=== PATIENT | female | born 1995 | race Caucasian/White ===

== ENCOUNTER 2017-06-07 06:33 | Inpatient (IN) | payer MEDICAID ==
[2017-06-07] MEDS ORDERED: Lidocaine 1% 50 ML MDV ONE (06:47)
[2017-06-07] MEDS ORDERED: Lidocaine 1% 50 ML MDV INJECT ONE (07:15)
[2017-06-07] MEDS ORDERED: fentaNYL 100 MCG/2 ML SDV IVPUSH ONE (07:30)
--- NOTE | 2017-06-07 08:17 | PCM.LDHP ---
L&D History of Present Illness - General Date of Service: 06/07/17 (active labor) Admit Problem/Dx: Patient Status Order with Admit Dx/Problem 06/07/17 08:08 Patient Status [ADT] Routine Admission Diagnosis/Problem Admission Diagnosis/Problem Vaginal delivery Source of Information: Patient History Limitations: Reports: No Limitations - History of Present Illness Introduction:: This 22 year old G2 presented in active labor at 37 2/7 weeks gestation, wanting to push. Generally gets care in [place] and wanted a . In labor during the night and came here instead. 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 History: Reports: : 2 Para: 1 LMP (Approximate): (ULISSES 06/27/17) H&P Review of Systems - Review of Systems: Review Of Systems: See Below General: Reports: No Symptoms HEENT: Reports: No Symptoms Pulmonary: Reports: No Symptoms Cardiovascular: Reports: No Symptoms Gastrointestinal: Reports: No Symptoms Genitourinary: Reports: No Symptoms Musculoskeletal: Reports: No Symptoms Skin: Reports: No Symptoms Psychiatric: Reports: No Symptoms Neurological: Reports: No Symptoms Hematologic/Lymphatic: Reports: No Symptoms Immunologic: Reports: No Symptoms L&D Exam - Exam Exam: See Below - OB Specific Contraction Intensity: Strong Movement: Active Heart Tones: Present Heart Tones per Min: 125 Heart Rate (FHR) Variability: Moderate (6-25 bmp) Presentation: Vertex Estimated Weight: 6-7 pounds - Rodarte Score Rodarte Score Cervix Position: Anterior Rodarte Score Consistency: Soft Rodarte Score Effacement: >80% Rodarte Score Dilation: > 5 cm Rodarte Score Infant's Station: +1, +2 Rodarte Score Total: 13 - Exam General: Alert, Oriented HEENT: PERRLA, Conjunctiva Clear, EACs Clear, EOMI, Hearing Intact, Mucosa Moist & [place], Nares Patent, Normal Nasal Septum, Posterior Pharynx Clear, TMs Clear Neck: Supple, Trachea Midline Lungs: Clear to Auscultation, Normal Respiratory Effort Cardiovascular: Regular Rate, Regular Rhythm GI/Abdominal Exam: Normal Bowel Sounds, Soft, Non-Tender, No Organomegaly, No Distention, No Abnormal Bruit, No Mass, Pelvis Stable Rectal Exam: Normal Exam, Normal Rectal Tone Genitourinary: Normal external exam, Normal bimanual exam, Normal speculum exam Back Exam: Normal Inspection, Full Range of Motion Extremities: Normal Inspection, Normal Range of Motion, Non-Tender, No Pedal Edema, Normal Capillary Refill Skin: Warm, Dry, Intact Neurological: Cranial Nerves Intact, Reflexes Equal Bilateral Psychiatric: Alert, Normal Affect, Normal Mood - Problem List (1) Positive GBS test SNOMED Code(s): 5119716927109 ICD Code: B95.1 - STREPTOCOCCUS, GROUP B, CAUSING DISEASES CLASSD ELSWHR Status: Acute Current Visit: Yes (2) Precipitous delivery SNOMED Code(s): 023593795 ICD Code: O62.3 - PRECIPITATE LABOR Status: Acute Current Visit: Yes Problem List Initiated/Reviewed/Updated: Yes Orders Last 24hrs: Active Orders 24 hr Category Date Time Status Patient Status [ADT] Routine ADT 06/07/17 08:08 Ordered Antiembolic Devices [RC] .Routine Care 06/07/17 08:10 Ordered May Shower [RC] ASDIRECTED Care 06/07/17 08:08 Ordered Up ad Brooke [RC] ASDIRECTED Care 06/07/17 08:08 Ordered VTE/DVT Education [RC] Click to Edit Care 06/07/17 08:10 Ordered Vital Signs [RC] PFP Care 06/07/17 08:08 Ordered Regular Diet [DIET] Diet 06/07/17 Lunch Ordered ABO/RH TYPE [BBK] Routine Lab 06/07/17 08:08 Ordered ANTIBODY SCREEN,NON-CROSSMATCH [REF] Routine Lab 06/07/17 08:08 Ordered CBC WITH AUTO DIFF [HEME] AM Lab 06/08/17 05:11 Ordered CBC WITH AUTO DIFF [HEME] Routine Lab 06/07/17 08:08 Ordered HEPATITIS B SURFACE ANTIGEN [REF] Routine Lab 06/07/17 08:08 Ordered HEPATITIS C ANTIBODY [REF] Routine Lab 06/07/17 08:08 Ordered HIV RAPID SCREEN RLFX COMFIRM [CHEM] Routine Lab 06/07/17 08:08 Ordered RHIG WORKUP, [BBK] Urgent Lab 06/07/17 08:08 Ordered RPR-TREP PALLIDIUM AB,REFLEX [REF] Routine Lab 06/07/17 08:08 Ordered RUBELLA,ANTIBODY IGG [REF] Routine Lab 06/07/17 08:08 Ordered Assess Lochia [WOMSER] Per Unit Routine Oth 06/07/17 08:08 Ordered Assess Uterine Involution [WOMSER] Per Unit Routine Oth 06/07/17 08:08 Ordered DVT/VTE Prophylaxis Reflex [OM.PC] Routine Oth 06/07/17 08:08 Ordered Ice Therapy [OM.PC] Per Unit Routine Oth 06/07/17 08:10 Ordered Perineal Care [OM.PC] Per Unit Routine Oth 06/07/17 08:09 Ordered Sitz Bath [OM.PC] Per Unit Routine Oth 06/07/17 08:09 Ordered Resuscitation Status Routine Resus Stat 06/07/17 08:08 Ordered Assessment/Plan Comment:: vaginal delivery with surgery on standby
--- NOTE | 2017-06-07 08:25 | PCM.DEL ---
L & D Note - General Info Date of Service: 06/07/17 (delivery) Mother's Due Date: 06/27/17 - Delivery Note Labor: Spontaneous Delivery Outcome: Livebirth Infant Delivery Method: Spontaneous Vaginal Delivery-Single Infant Delivery Mode: Spontaneous Presentation: Vertex Nuchal Cord: Present Anesthesia Type: Local Anesthetic: Lidocaine (Xylocaine) 1% Plain Local Anesthetic Volume: 5cc Amniotic Fluid Description: Clear Episiotomy Type: None Laceration: 2nd Degree, Perineal Suture size: 3-0 Placenta: Intact, Spontaneous Cord: 3 Vessels Estimated Blood Loss: 0 Resuscitation Needed: No : Stimulated, Warmed, [place] Used Score 1 min: 8 Score 5 min: 8 Post Delivery Events: Other (see below) (inplanned ) Second Stage Interventions: Reports: Second Nurse Reviewed Heart Tones, Pushing Effectively, Pushing, McRobert's Position Delivery Comments (Free Text/Narrative):: This 22 year old G2 now P2 who is 37 2/7 weeks gestation presented in active labor complete.I was called from home and arrived in 7 minutes. She is a [place] present who was laboring at home and decided to come here instead of [place]. SROM in car on the way here, clear fluid. at 0703 in EDUARDO position with a loose nuchal cord which was reduced. The male was placed on mother's abdomen and he cried spontaneously. Apgars 8,8. Three vessel cord. He was dried and stimulated. The placenta was expressed spontaneously intact. She had a small second degree perineal tear, which was repaired with 3-0 vicryl. No other tears of the cervix , vagina, or rectum were found. EBL 100 Mother and baby to post and nursery in stable condition - General Info Date of Service: 06/07/17 Admission Dx/Problem (Free Text): Patient Status Order with Admit Dx/Problem 06/07/17 08:08 Patient Status [ADT] Routine Admission Diagnosis/Problem Admission Diagnosis/Problem Vaginal delivery Functional Status: Reports: Pain Controlled - Review of Systems General: Reports: No Symptoms HEENT: Reports: No Symptoms Pulmonary: Reports: No Symptoms Cardiovascular: Reports: No Symptoms Gastrointestinal: Reports: No Symptoms Genitourinary: Reports: No Symptoms Musculoskeletal: Reports: No Symptoms Skin: Reports: No Symptoms Neurological: Reports: No Symptoms Psychiatric: Reports: No Symptoms - Patient Data Med Orders - Current: Current Medications Discontinued Medications Fentanyl (Sublimaze) 100 mcg IVPUSH ONETIME ONE Stop: 06/07/17 07:31 - Exam General: Alert, Oriented HEENT: Pupils Equal, Pupils Reactive, EOMI, Mucous Membr. Moist/[place] Neck: Supple Lungs: Clear to Auscultation, Normal Respiratory Effort Cardiovascular: Regular Rate, Regular Rhythm GI/Abdominal Exam: Normal Bowel Sounds, Soft, Non-Tender, No Organomegaly, No Distention, No Abnormal Bruit, No Mass, Pelvis Stable (Female) Exam: Cervical Dilatation, Enlarged Uterus, Vaginal Bleeding, Vaginal Tears Back Exam: Normal Inspection, Full Range of Motion Extremities: Normal Inspection, Normal Range of Motion, Non-Tender, No Pedal Edema, Normal Capillary Refill Skin: Warm, Dry, Intact Wound/Incisions: Healing Well Neurological: No New Focal Deficit Psy/Mental Status: Alert, Normal Affect, Normal Mood - Problem List & Annotations (1) Positive GBS test SNOMED Code(s): 2565491523502 Code(s): B95.1 - STREPTOCOCCUS, GROUP B, CAUSING DISEASES CLASSD ELSWHR Status: Acute Current Visit: Yes (2) Precipitous delivery SNOMED Code(s): 850130631 Code(s): O62.3 - PRECIPITATE LABOR Status: Acute Current Visit: Yes (3) SNOMED Code(s): 42410685 Code(s): Z34.90 - ENCNTR FOR SUPRVSN OF NORMAL , UNSP, UNSP TRIMESTER Status: Acute Current Visit: Yes Qualifiers: Weeks of gestation: 37 weeks Qualified Code(s): Z3A.37 - 37 weeks gestation of - Problem List Review Problem List Initiated/Reviewed/Updated: Yes - My Orders Last 24 Hours: My Active Orders 06/07/17 08:08 Patient Status [ADT] Routine May Shower [RC] ASDIRECTED Up ad Brooke [RC] ASDIRECTED Vital Signs [RC] PFP ABO/RH TYPE [BBK] Routine ANTIBODY SCREEN,NON-CROSSMATCH [REF] Routine CBC WITH AUTO DIFF [HEME] Routine HEPATITIS B SURFACE ANTIGEN [REF] Routine HEPATITIS C ANTIBODY [REF] Routine HIV RAPID SCREEN RLFX COMFIRM [CHEM] Routine RHIG WORKUP, [BBK] Urgent RPR-TREP PALLIDIUM AB,REFLEX [REF] Routine RUBELLA,ANTIBODY IGG [REF] Routine Assess Lochia [WOMSER] Per Unit Routine Assess Uterine Involution [WOMSER] Per Unit Routine DVT/VTE Prophylaxis Reflex [OM.PC] Routine Resuscitation Status Routine 06/07/17 08:09 Perineal Care [OM.PC] Per Unit Routine Sitz Bath [OM.PC] Per Unit Routine 06/07/17 08:10 Antiembolic Devices [RC] .Routine VTE/DVT Education [RC] Click to Edit Ice Therapy [OM.PC] Per Unit Routine 06/07/17 Lunch Regular Diet [DIET] 06/08/17 05:11 CBC WITH AUTO DIFF [HEME] AM - Assessment Assessment:: 06/07/17 22 yr old g2 now p2 , precipitous, 37 2/7 weeks Small second tear, repaired - Plan Plan:: vaginal delivery with surgery on standby 06/07/17 GBS positive, not treated 48 hour stay routine post cares Labs: Rubella immune ABO O negative, had Rhogam at 29 weeks HIV neg RPR, NR Hep B non reactive
[2017-06-07] MEDS ORDERED: Acetaminophen 325 MG Tab, 50 Tab Bulk Bottle PO PRN (08:36)
[2017-06-07] MEDS ORDERED: Ibuprofen 200 MG Tab, 24 Tab Bulk Bottle PO PRN (08:36)
[2017-06-08] MEDS ORDERED: Lanolin 100% Cream 40 GM Tube TOP PRN (10:23)
--- NOTE | 2017-06-08 10:44 | PCM.PNPP ---
- General Info Date of Service: 06/08/17 (PPD 1) Admission Dx/Problem (Free Text): Patient Status Order with Admit Dx/Problem 06/07/17 08:08 Patient Status [ADT] Routine Admission Diagnosis/Problem Admission Diagnosis/Problem Vaginal delivery Functional Status: Reports: Pain Controlled - Review of Systems General: Reports: No Symptoms HEENT: Reports: No Symptoms Pulmonary: Reports: No Symptoms Cardiovascular: Reports: No Symptoms Gastrointestinal: Reports: No Symptoms Genitourinary: Reports: No Symptoms Musculoskeletal: Reports: No Symptoms Skin: Reports: No Symptoms Neurological: Reports: No Symptoms Psychiatric: Reports: No Symptoms - General Info Date of Service: 06/08/17 - Patient Data Vital Signs - Most Recent: Last Vital Signs Temp 98.4 F 06/08/17 07:17 Pulse 70 06/08/17 07:17 Resp 18 06/08/17 07:17 BP 102/59 L 06/08/17 07:17 Pulse Ox 98 06/08/17 07:17 Weight - Most Recent: 160 lb 0.008 oz Lab Results - Last 24 Hours: Laboratory Results - last 24 hr 06/07/17 06/07/17 06/07/17 Range/Units 08:20 13:04 13:04 WBC (4.5-11.0) K/uL RBC (3.30-5.50) M/uL Hgb (12.0-15.0) g/dL Hct (36.0-48.0) % MCV (80-98) fL MCH (27-31) pg MCHC (32-36) % Plt Count (150-400) K/uL Neut % (Auto) (36-66) % Lymph % (Auto) (24-44) % Adams % (Auto) (2-6) % Eos % (Auto) (2-4) % Baso % (Auto) (0-1) % Urine Color Red Urine Appearance Cloudy Urine pH 6.0 (4.5-8.0) Ur Specific [place] 1.015 (1.008-1.030) Urine Protein 30 H (NEGATIVE) mg/dL Urine Glucose (UA) Normal (NEGATIVE) mg/dL Urine Ketones Negative (NEGATIVE) mg/dL Urine Occult Blood Large (NEGATIVE) Urine Nitrite Negative (NEGATIVE) Urine Bilirubin Negative (NEGATIVE) Urine Urobilinogen Normal (NORMAL) mg/dL Ur Leukocyte Esterase Moderate (NEGATIVE) Urine RBC >100 H (0-5) Urine WBC 0-5 (0-5) Ur Epithelial Cells Few Amorphous Sediment Not seen Urine Bacteria Not seen Urine Mucus Not seen Urine Opiates Screen Negative (NEGATIVE) Ur Oxycodone Screen Negative (NEGATIVE) Urine Methadone Screen Negative (NEGATIVE) Ur Propoxyphene Screen Negative (NEGATIVE) Ur Barbiturates Screen Negative (NEGATIVE) Ur Tricyclics Screen Negative (NEGATIVE) Ur Phencyclidine Scrn Negative (NEGATIVE) Ur Amphetamine Screen Negative (NEGATIVE) U Methamphetamines Scrn Negative (NEGATIVE) Urine MDMA Screen Negative (NEGATIVE) U Benzodiazepines Scrn Negative (NEGATIVE) U Cocaine Metab Screen Negative (NEGATIVE) U Marijuana (THC) Screen Negative (NEGATIVE) Antibody Identification Undetermined Specific Rhogam Indicated No, mom+baby rh neg 06/08/17 Range/Units 05:00 WBC 10.5 (4.5-11.0) K/uL RBC 3.98 (3.30-5.50) M/uL Hgb 9.0 L (12.0-15.0) g/dL Hct 29.4 L (36.0-48.0) % MCV 74 L (80-98) fL MCH 23 L (27-31) pg MCHC 31 L (32-36) % Plt Count 202 (150-400) K/uL Neut % (Auto) 58 (36-66) % Lymph % (Auto) 32 (24-44) % Adams % (Auto) 9 H (2-6) % Eos % (Auto) 2 (2-4) % Baso % (Auto) 0 (0-1) % Urine Color Urine Appearance Urine pH (4.5-8.0) Ur Specific [place] (1.008-1.030) Urine Protein (NEGATIVE) mg/dL Urine Glucose (UA) (NEGATIVE) mg/dL Urine Ketones (NEGATIVE) mg/dL Urine Occult Blood (NEGATIVE) Urine Nitrite (NEGATIVE) Urine Bilirubin (NEGATIVE) Urine Urobilinogen (NORMAL) mg/dL Ur Leukocyte Esterase (NEGATIVE) Urine RBC (0-5) Urine WBC (0-5) Ur Epithelial Cells Amorphous Sediment Urine Bacteria Urine Mucus Urine Opiates Screen (NEGATIVE) Ur Oxycodone Screen (NEGATIVE) Urine Methadone Screen (NEGATIVE) Ur Propoxyphene Screen (NEGATIVE) Ur Barbiturates Screen (NEGATIVE) Ur Tricyclics Screen (NEGATIVE) Ur Phencyclidine Scrn (NEGATIVE) Ur Amphetamine Screen (NEGATIVE) U Methamphetamines Scrn (NEGATIVE) Urine MDMA Screen (NEGATIVE) U Benzodiazepines Scrn (NEGATIVE) U Cocaine Metab Screen (NEGATIVE) U Marijuana (THC) Screen (NEGATIVE) Antibody Identification Rhogam Indicated Med Orders - Current: Current Medications Acetaminophen (Tylenol Bulk Bottle) 650 mg PO Q4H PRN PRN Reason: Pain Emollient Ointment (Lansinoh Hpa) 40 gm TOP ASDIRECTED PRN PRN Reason: Pain Last Admin: 06/08/17 10:31 Dose: 1 applic Ibuprofen (Motrin Bulk Bottle) 200 mg PO Q6H PRN PRN Reason: Pain Discontinued Medications Fentanyl (Sublimaze) 100 mcg IVPUSH ONETIME ONE Stop: 06/07/17 07:31 Last Admin: 06/07/17 07:05 Dose: 100 mcg Oxytocin/Sodium Chloride (Pitocin In Ns 20 Units/1,000 Ml) Confirm Administered Dose 20 unit in 1,000 mls @ as directed .ROUTE .STK-MED ONE Stop: 06/07/17 06:37 Last Admin: 06/07/17 07:05 Dose: 20 unit Oxytocin/Sodium Chloride (Pitocin In Ns 20 Units/1,000 Ml) 20 unit in 1,000 mls @ 250 mls/hr IV BOLUS ANGEL PRN Reason: Protocol Stop: 06/07/17 11:04 Last Admin: 06/07/17 15:39 Dose: Not Given Lidocaine HCl (Xylocaine 1%) Confirm Administered Dose 100 ml .ROUTE .STK-MED ONE Stop: 06/07/17 06:48 Last Admin: 06/07/17 07:00 Dose: 100 ml Lidocaine HCl (Xylocaine 1%) 0 ml INJECT ONETIME ONE Stop: 06/07/17 07:16 Last Admin: 06/07/17 15:39 Dose: Not Given - Interaction Infant Disposition, : [place] in Room with Family Interaction: Holding Infant Infant Feeding: Breastfed Infant; Nursed Well Support Person: - Recovery Exam Fundal Tone: Firm Fundal Level: At Umbilicus Fundal Placement: Midline Lochia Amount: Small Lochia Color: Rubra/Red Perineum Description: Intact, Minimal Bruising/Swelling Episiotomy/Laceration: Approximated Urinary Elimination: Voided - Exam General: Alert, Oriented HEENT: Pupils Equal Neck: Supple Lungs: Clear to Auscultation, Normal Respiratory Effort Cardiovascular: Regular Rate, Regular Rhythm GI/Abdominal Exam: Normal Bowel Sounds, Soft, Non-Tender, No Organomegaly, No Distention, No Abnormal Bruit, No Mass, Pelvis Stable Extremities: Normal Inspection, Normal Range of Motion, Non-Tender, No Pedal Edema, Normal Capillary Refill Skin: Warm, Dry, Intact Wound/Incisions: Healing Well Psy/Mental Status: Alert, Normal Affect, Normal Mood - Problem List & Annotations (1) Positive GBS test SNOMED Code(s): 6279582346404 Code(s): B95.1 - STREPTOCOCCUS, GROUP B, CAUSING DISEASES CLASSD ELSR Status: Acute Current Visit: Yes (2) Precipitous delivery SNOMED Code(s): 951117146 Code(s): O62.3 - PRECIPITATE LABOR Status: Acute Current Visit: Yes (3) SNOMED Code(s): 02793624 Code(s): Z34.90 - ENCNTR FOR SUPRVSN OF NORMAL , UNSP, UNSP TRIMESTER Status: Acute Current Visit: Yes Qualifiers: Weeks of gestation: 37 weeks Qualified Code(s): Z3A.37 - 37 weeks gestation of - Problem List Review Problem List Initiated/Reviewed/Updated: Yes - My Orders Last 24 Hours: My Active Orders 06/07/17 Lunch Regular Diet [DIET] 06/08/17 10:23 Lanolin [Lansinoh HPA] 40 gm TOP ASDIRECTED PRN - Assessment Assessment:: 06/07/17 22 yr old g2 now p2 , precipitous, 37 2/7 weeks Small second tear, repaired 06/08/17 No problems today HGB 9 has a history of Anemia encouraged iron supplement without problem No fever today - Plan Plan:: vaginal delivery with surgery on standby 06/07/17 GBS positive, not treated 48 hour stay routine post cares Labs: Rubella immune ABO O negative, had Rhogam at 29 weeks HIV neg RPR, NR Hep B non reactive 06/08/16 Home tomorrow support and continue routine cares.
--- NOTE | 2017-06-09 07:48 | PCM.PNPP ---
- General Info Date of Service: 06/09/17 (PPD 2 D/C) Admission Dx/Problem (Free Text): Patient Status Order with Admit Dx/Problem 06/07/17 08:08 Patient Status [ADT] Routine Admission Diagnosis/Problem Admission Diagnosis/Problem Vaginal delivery Functional Status: Reports: Pain Controlled - Review of Systems General: Reports: No Symptoms HEENT: Reports: No Symptoms Pulmonary: Reports: No Symptoms Cardiovascular: Reports: No Symptoms Gastrointestinal: Reports: No Symptoms Genitourinary: Reports: No Symptoms Musculoskeletal: Reports: No Symptoms Skin: Reports: No Symptoms Neurological: Reports: No Symptoms Psychiatric: Reports: No Symptoms - General Info Date of Service: 06/09/17 - Patient Data Vital Signs - Most Recent: Last Vital Signs Temp 99.8 F 06/09/17 07:03 Pulse 90 06/09/17 07:03 Resp 16 06/09/17 07:03 BP 109/75 06/09/17 07:03 Pulse Ox 95 06/09/17 07:03 Weight - Most Recent: 160 lb 0.008 oz I&O - Last 24 Hours: Intake & Output 06/08/17 06/09/17 06/09/17 22:59 06:59 14:59 Intake Total 600 Balance 600 Med Orders - Current: Current Medications Acetaminophen (Tylenol Bulk Bottle) 650 mg PO Q4H PRN PRN Reason: Pain Emollient Ointment (Lansinoh Hpa) 40 gm TOP ASDIRECTED PRN PRN Reason: Pain Last Admin: 06/08/17 10:31 Dose: 1 applic Ibuprofen (Motrin Bulk Bottle) 200 mg PO Q6H PRN PRN Reason: Pain Discontinued Medications Fentanyl (Sublimaze) 100 mcg IVPUSH ONETIME ONE Stop: 06/07/17 07:31 Last Admin: 06/07/17 07:05 Dose: 100 mcg Oxytocin/Sodium Chloride (Pitocin In Ns 20 Units/1,000 Ml) Confirm Administered Dose 20 unit in 1,000 mls @ as directed .ROUTE .STK-MED ONE Stop: 06/07/17 06:37 Last Admin: 06/07/17 07:05 Dose: 20 unit Oxytocin/Sodium Chloride (Pitocin In Ns 20 Units/1,000 Ml) 20 unit in 1,000 mls @ 250 mls/hr IV BOLUS ANGEL PRN Reason: Protocol Stop: 06/07/17 11:04 Last Admin: 06/07/17 15:39 Dose: Not Given Lidocaine HCl (Xylocaine 1%) Confirm Administered Dose 100 ml .ROUTE .STK-MED ONE Stop: 06/07/17 06:48 Last Admin: 06/07/17 07:00 Dose: 100 ml Lidocaine HCl (Xylocaine 1%) 0 ml INJECT ONETIME ONE Stop: 06/07/17 07:16 Last Admin: 06/07/17 15:39 Dose: Not Given - Infant Interaction Infant Disposition, : [place] in Room with Family Interaction: Holding Infant Feeding: Breastfed Infant; Nursed Well Support Person: - Recovery Exam Fundal Tone: Firm Fundal Level: At Umbilicus Fundal Placement: Midline Lochia Amount: Moderate Lochia Color: Rubra/Red Perineum Description: Intact, Minimal Bruising/Swelling Episiotomy/Laceration: Approximated Bladder Status: Voiding Urinary Elimination: Voided - Exam General: Alert, Oriented HEENT: Pupils Equal Neck: Supple Lungs: Clear to Auscultation, Normal Respiratory Effort Cardiovascular: Regular Rate, Regular Rhythm GI/Abdominal Exam: Normal Bowel Sounds, Soft, Non-Tender, No Organomegaly, No Distention, No Abnormal Bruit, No Mass, Pelvis Stable Extremities: Normal Inspection, Normal Range of Motion, Non-Tender, No Pedal Edema, Normal Capillary Refill Skin: Warm, Dry, Intact Wound/Incisions: Healing Well Neurological: No New Focal Deficit Psy/Mental Status: Alert, Normal Affect, Normal Mood - Problem List & Annotations (1) Positive GBS test SNOMED Code(s): 3545147860500 Code(s): B95.1 - STREPTOCOCCUS, GROUP B, CAUSING DISEASES CLASSD ELSWHR Status: Acute Current Visit: Yes (2) Precipitous delivery SNOMED Code(s): 040973315 Code(s): O62.3 - PRECIPITATE LABOR Status: Acute Current Visit: Yes (3) SNOMED Code(s): 83423784 Code(s): Z34.90 - ENCNTR FOR SUPRVSN OF NORMAL , UNSP, UNSP TRIMESTER Status: Acute Current Visit: Yes Qualifiers: Weeks of gestation: 37 weeks Qualified Code(s): Z3A.37 - 37 weeks gestation of - Problem List Review Problem List Initiated/Reviewed/Updated: Yes - My Orders Last 24 Hours: My Active Orders 06/08/17 10:23 Lanolin [Lansinoh [facility]] 40 gm TOP ASDIRECTED PRN - Assessment Assessment:: 06/07/17 22 yr old g2 now p2 , precipitous, 37 2/7 weeks Small second tear, repaired 06/08/17 No problems today HGB 9 has a history of Anemia encouraged iron supplement without problem No fever today 06/09/17 Doing well Wants to go home No fever or problems without concerns - Plan Plan:: vaginal delivery with surgery on standby 06/07/17 GBS positive, not treated 48 hour stay routine post cares Labs: Rubella immune ABO O negative, had Rhogam at 29 weeks HIV neg RPR, NR Hep B non reactive 06/08/16 Home tomorrow support and continue routine cares. 06/09/17 Home today See me in 6 weeks for a post visit
== END 2017-06-09 10:25 | disposition home or self-care (01) | DRG 775 ==
LOC: JP.OBCHECK 06:33 → JP.OB 06:41 → OBSVTOIN 07:03 → JP.OB 07:03 → JP.MS 12:18
PROVIDERS: ADMIT Nurse Practitioner Family; ATTEND Nurse Practitioner Family
PROC: 10E0XZZ Delivery of Products of Conception, External Approach (ICD-10-PCS; principal; 2017-06-07)
PROC: 0KQM0ZZ Repair Perineum Muscle, Open Approach (ICD-10-PCS; 2017-06-07)
DX: O62.3 Precipitate labor (principal); O34.219 Maternal care for unspecified type scar from previous cesarean delivery; O99.824 Streptococcus B carrier state complicating childbirth; O69.81X0 Labor and delivery complicated by cord around neck, without compression, not applicable or unspecified; O70.1 Second degree perineal laceration during delivery; Z3A.37 37 weeks gestation of pregnancy; Z37.0 Single live birth
CPT/HCPCS: 36415; 59300; 59409; 80305; 81001; 85025; 85460; 86850; 86900; 86901; 99211; A9270-GY; J2590; J3010

== ENCOUNTER 2019-11-12 18:18 | Emergency (ER) | payer MEDICAID ==
[2019-11-12] MEDS ORDERED: Sodium Chloride 0.9% 1,000 ML IV SCH (19:30)
--- NOTE | 2019-11-12 19:56 | EDM.PDOC ---
ED HPI GENERAL MEDICAL PROBLEM - General Chief Complaint: Abdominal Pain Stated Complaint: ABD PAIN Time Seen by Provider: 11/12/19 18:23 Source of Information: Reports: Patient, RN History Limitations: Reports: No Limitations - History of Present Illness INITIAL COMMENTS - FREE TEXT/NARRATIVE: chief complaint: evaluation concerns of miscarriage. This is a 24 year old , with ULISSES 05/06/2020, reports about two weeks ago experienced 2 days of heavy menstrual like bleeding then 2 days of light bleeding, now has abdominal bloating, feels like she has to pass gas but can't. She did call her OB Doctor in [place]. She did have a ultrasound at 10 weeks 1 days and all was okay. then after ultrasound had the bleeding. breast feeding her 1 year old child. Gestational age 14 weeks per previous ultrasound denies fever, chills, nausea, vomiting, diarrhea or constipation Onset: Today Location: Reports: Abdomen Quality: Reports: Pressure Severity: Mild Improves with: Reports: None Worsens with: Reports: None Context: Reports: Other ( with bleeding) Associated Symptoms: Reports: No Other Symptoms - Related Data Allergies Allergy/AdvReac Type Severity Reaction Status Date / Time No Known Allergies Allergy Verified 11/12/19 19:22 Home Meds: Home Meds NK [No Known Home Meds] 11/12/19 [History] Past Medical History - Past Health History Medical/Surgical History: Denies Medical/Surgical History 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 [place] farm) ED ROS GENERAL - Review of Systems Review Of Systems: See Below Constitutional: Reports: No Symptoms, Other (abdominal bloating. ) HEENT: Reports: No Symptoms Respiratory: Reports: No Symptoms Cardiovascular: Reports: No Symptoms Endocrine: Reports: No Symptoms GI/Abdominal: Reports: Distension (feels bloated, last BM this am- normal) : Reports: No Symptoms Musculoskeletal: Reports: No Symptoms Skin: Reports: No Symptoms Neurological: Reports: No Symptoms Psychiatric: Reports: No Symptoms Hematologic/Lymphatic: Reports: No Symptoms Immunologic: Reports: No Symptoms ED EXAM, GI/ABD - Physical Exam Exam: See Below Exam Limited By: No Limitations General Appearance: Alert, WD/WN, No Apparent Distress Eyes: Bilateral: Normal Appearance, EOMI Ears: Normal External Exam Nose: Normal Inspection, Normal Mucosa, No Blood Throat/Mouth: Normal Inspection, Normal Lips, Normal Teeth, Normal Gums, Normal Oropharynx, Normal Voice, No Airway Compromise Head: Atraumatic, Normocephalic Neck: Normal Inspection, Supple, Non-Tender, Full Range of Motion Respiratory/Chest: No Respiratory Distress, Lungs Clear, Normal Breath Sounds, No Accessory Muscle Use Cardiovascular: Normal Peripheral Pulses, Regular Rate, Rhythm, No Edema, No Gallop, No JVD, No Murmur, No Rub GI/Abdominal Exam: Normal Bowel Sounds, Soft, Non-Tender, No Distention, No Abnormal Bruit (Female) Exam: Deferred (declines exam) Rectal (Female) Exam: Deferred Back Exam: Normal Inspection, Full Range of Motion, NT Neurological: Alert, Oriented, CN II-XII Intact, Normal Cognition, Normal Gait, Normal Reflexes, No Motor/Sensory Deficits Psychiatric: Normal Affect, Normal Mood Skin Exam: Warm, Dry, Intact, Normal Color, No Rash Lymphatic: No Adenopathy Course - Vital Signs Last Recorded V/S: Last Vital Signs Temp 36.2 C 11/12/19 19:17 Pulse 91 11/12/19 19:17 Resp 16 11/12/19 19:17 BP 113/79 11/12/19 19:17 Pulse Ox 98 11/12/19 19:17 - Orders/Labs/Meds Orders: Active Orders 24 hr Category Date Time Status OB 1st Tri Sgl 1st Gest [US] Urgent Exams 11/12/19 19:30 Taken CULTURE URINE [] Stat Lab 11/12/19 21:30 Ordered Labs: Laboratory Tests 11/12/19 11/12/19 11/12/19 Range/Units 19:37 19:41 19:41 WBC 8.3 (4.5-11.0) K/uL RBC 4.20 (3.30-5.50) M/uL Hgb 11.8 L D (12.0-15.0) g/dL Hct 36.2 (36.0-48.0) % MCV 86 (80-98) fL MCH 28 (27-31) pg MCHC 33 (32-36) % Plt Count 216 (150-400) K/uL Neut % (Auto) 60 (36-66) % Lymph % (Auto) 26 (24-44) % Glascock % (Auto) 8 H (2-6) % Eos % (Auto) 6 H (2-4) % Baso % (Auto) 0 (0-1) % Sodium 139 L (140-148) mmol/L Potassium 3.5 L (3.6-5.2) mmol/L Chloride 105 (100-108) mmol/L Carbon Dioxide 26 (21-32) mmol/L Anion Gap 11.5 (5.0-14.0) mmol/L BUN 8 (7-18) mg/dL Creatinine 0.7 (0.6-1.0) mg/dL Est Cr Clr Drug Dosing 52.62 mL/min Estimated GFR (MDRD) > 60 (>60) Glucose 78 (74-106) mg/dL Calcium 8.3 L (8.5-10.1) mg/dL HCG, Quant 14060 H (0-6) mIU/mL Urine Color (YELLOW) Urine Appearance (CLEAR) Urine pH (5.0-8.0) Ur Specific Gorman (1.008-1.030) Urine Protein (NEGATIVE) mg/dL Urine Glucose (UA) (NEGATIVE) mg/dL Urine Ketones (NEGATIVE) mg/dL Urine Occult Blood (NEGATIVE) Urine Nitrite (NEGATIVE) Urine Bilirubin (NEGATIVE) Urine Urobilinogen (0.2-1.0) EU/dL Ur Leukocyte Esterase (NEGATIVE) Urine RBC (0-5) Urine WBC (0-5) Ur Epithelial Cells Amorphous Sediment Urine Bacteria Urine Mucus 11/12/19 Range/Units 21:07 WBC (4.5-11.0) K/uL RBC (3.30-5.50) M/uL Hgb (12.0-15.0) g/dL Hct (36.0-48.0) % MCV (80-98) fL MCH (27-31) pg MCHC (32-36) % Plt Count (150-400) K/uL Neut % (Auto) (36-66) % Lymph % (Auto) (24-44) % Glascock % (Auto) (2-6) % Eos % (Auto) (2-4) % Baso % (Auto) (0-1) % Sodium (140-148) mmol/L Potassium (3.6-5.2) mmol/L Chloride (100-108) mmol/L Carbon Dioxide (21-32) mmol/L Anion Gap (5.0-14.0) mmol/L BUN (7-18) mg/dL Creatinine (0.6-1.0) mg/dL Est Cr Clr Drug Dosing mL/min Estimated GFR (MDRD) (>60) Glucose (74-106) mg/dL Calcium (8.5-10.1) mg/dL HCG, Quant (0-6) mIU/mL Urine Color Yellow (YELLOW) Urine Appearance Cloudy A (CLEAR) Urine pH 6.0 (5.0-8.0) Ur Specific Gorman 1.025 (1.008-1.030) Urine Protein Negative (NEGATIVE) mg/dL Urine Glucose (UA) Negative (NEGATIVE) mg/dL Urine Ketones Negative (NEGATIVE) mg/dL Urine Occult Blood Negative (NEGATIVE) Urine Nitrite Negative (NEGATIVE) Urine Bilirubin Negative (NEGATIVE) Urine Urobilinogen 0.2 (0.2-1.0) EU/dL Ur Leukocyte Esterase Moderate H (NEGATIVE) Urine RBC 0-5 (0-5) Urine WBC 20-30 H (0-5) Ur Epithelial Cells Many Amorphous Sediment Not seen Urine Bacteria Many Urine Mucus Few Meds: Medications Discontinued Medications Generic Name Dose Route Start Last Admin Trade Name Freq PRN Reason Stop Dose Admin Sodium Chloride 1,000 mls @ 999 mls/hr 11/12/19 19:30 Normal Saline IV ASDIRECTED [facility] - Re-Assessments/Exams Free Text/Narrative Re-Assessment/Exam: 11/12/19 19:59 will order labs and ob ultrasound limited to evaluate for . Mrs. Mcginnis agrees with plan of care. 11/12/19 20:00 labs results hemoglobin 11.8, WBC 8.3, bmp Na+139 K+ 3.5 OB ultrasound pending. declines IV fluids or pelvic exam. would like ultrasound to be abdominal only if possible. 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 heart activity noted. fetus is active. placenta noted. discussed results with Mrs. Mcginnis is intact and viable. recommends rest, push fluids, avoid any strenuous activities. 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 discussed rest, and call OB Medical Doctor in the morning. waiting for her to give urine sample to rule out urinary tract infection. 11/12/19 21:24 urinary tract infection- +WBC. +Leukocytes- will order Macrobid po bid Departure - Departure Time of Disposition: 21:32 Disposition: Home, Self-Care 01 Condition: Good Clinical Impression: , Flatus, Seasonal allergic conjunctivitis, Spotting affecting in second trimester, Urinary tract infection affecting care of mother in second trimester, antepartum - Discharge Information *PRESCRIPTION DRUG MONITORING PROGRAM REVIEWED*: Not Applicable *COPY OF PRESCRIPTION DRUG MONITORING REPORT IN PATIENT KEM: Not Applicable Instructions: Allergic Conjunctivitis, Adult, [id number], and the Partner's Role, Vaginal Bleeding During , Second Trimester, and Urinary Tract Infection, Second Trimester of Referrals: PCP,None [Primary Care Provider] - Forms: ED Department Discharge Care Plan Goals: at 14 weeks with spotting -rest, avoid lifting, light activities -push fluids- 8 glasses of water per day -healthy diet -call OB Doctor in the morning and discuss ER visit and follow up Return to ER for any bleeding, spotting, cramping, discharge, sudden gush of fluids, fever, chills or not improved Urinary Tract Infection -Macrobid one by mouth two times a day til gone -urine culture pending Gas- flatus -over the counter Beano or gas X -avoid gas forming foods example cabbage Seasonal Allergies -eye drops as directed -follow up if not improved or symptoms worsen. Sepsis Event Note (ED) - Evaluation Sepsis Screening Result: No Definite Risk - Focused Exam Vital Signs: Vital Signs Temp Pulse Resp BP Pulse Ox 11/12/19 19:17 36.2 C 91 16 113/79 98 - Problem List & Annotations (1) Spotting during in second trimester SNOMED Code(s): 714523521, 07687788, 342087874 Code(s): O26.852 - SPOTTING COMPLICATING , SECOND TRIMESTER Status: Acute Priority: High Current Visit: Yes (2) Flatus SNOMED Code(s): 097051720 Code(s): R14.3 - FLATULENCE Status: Acute Priority: High Current Visit: Yes (3) Seasonal allergic conjunctivitis SNOMED Code(s): 759678084 Code(s): H10.10 - ACUTE ATOPIC CONJUNCTIVITIS, UNSPECIFIED EYE Status: Acute Priority: High Current Visit: Yes - Problem List Review Problem List Initiated/Reviewed/Updated: Yes - My Orders Last 24 Hours: My Active Orders 11/12/19 19:30 OB 1st Tri Sgl 1st Gest [US] Urgent 11/12/19 21:30 CULTURE URINE [RM] Stat - Assessment/Plan Last 24 Hours: My Active Orders 11/12/19 19:30 OB 1st Tri Sgl 1st Gest [US] Urgent 11/12/19 21:30 CULTURE URINE [RM] Stat Plan: at 14 weeks with vaginal spotting -rest, avoid lifting, light activities -push fluids- 8 glasses of water per day -healthy diet -call OB Doctor in the morning and discuss ER visit and follow up Return to ER for any bleeding, spotting, cramping, discharge, sudden gush of fluids, fever, chills or not improved Urinary Tract Infection -Macrobid one by mouth two times a day til gone -urine culture pending Gas- flatus -over the counter Beano or gas X -avoid gas forming foods example cabbage Seasonal Allergies -eye drops as directed -follow up if not improved or symptoms worsen.
--- NOTE | 2019-11-13 11:03 | US ---
INDICATION: vaginal bleeding approx 2 weeks ago COMPARISON: None FINDINGS: Single live IUP at 14 weeks 1 day by crown-rump length heart rate: 153 BPM. EDC 05/11/2020 Yolk sac seen. Other findings: Myometrium is somewhat heterogeneous in the anterior abdomen. This may be due to multiparity. No abnormal fluid collections are seen IMPRESSION: Single live IUP at 14 weeks 1 day ULISSES 05/11/2020 No evidence of hemorrhage or abnormal fluid collections
== END 2019-11-12 19:44 | disposition home or self-care (01) ==
LOC: JP.ED 18:18
DX: R14.3 Flatulence (principal); O26.852 Spotting complicating pregnancy, second trimester; O23.42 Unspecified infection of urinary tract in pregnancy, second trimester; O99.350 Diseases of the nervous system complicating pregnancy, unspecified trimester; H10.10 Acute atopic conjunctivitis, unspecified eye; Z3A.14 14 weeks gestation of pregnancy
CPT/HCPCS: 36415; 76801; 76801-26; 80048; 81001; 84702; 85025; 87086; 99283; 99284-25